=== PATIENT | male | born 1960 | race Caucasian/White ===

== ENCOUNTER → 2022-03-18 | Outpatient (CLI) | payer BC, SELFPAY ==
[2022-03-18 17:59] LABS: CRP < 2.90 mg/L (0.0-3.0)
[2022-03-21 16:08] LABS: Endomysial Antibody IgA Negative (Negative)
[2022-03-21 20:16] LABS: Immunoglobulin A 212 mg/dL (90-386); t-Transglutaminase IgA <2 U/mL (0-3)
== END | disposition home or self-care (01) ==
PROVIDERS: PCP Nurse Practitioner Family; Referring Provider Internal Medicine Gastroenterology; Visit Provider Internal Medicine Gastroenterology
DX: R19.7 Diarrhea, unspecified (principal)
CPT/HCPCS: 36415; 82784; 83516; 86140; 86255